=== PATIENT | male | born 1955 | race Caucasian/White ===

== ENCOUNTER 2022-05-08 10:42 | Emergency (ER) | payer MEDICARE, MEDICAID, SELFPAY ==
[2022-05-08] VITALS (9 sets, daily range): BP systolic 136–232; BP diastolic 62–128; PULSE 70–117; RESP 12–28; TEMP 36.1; O2SAT 95–98; BMI 31.0
[2022-05-08 11:06] LABS: Add Manual Diff / Slide Review NO; Basophils Absolute Auto 0 /uL (0-100); Basophils Percent Auto 1.1 % (0-2); Eosinophils Absolute Auto 100 /uL (0-450); Eosinophils Percent Auto 1.3 % (2-4); Hematocrit 43.6 % (41-53); Hemoglobin 15.2 g/dL (13.5-17.5); Lymphocytes Absolute Auto 1400 /uL (1100-4500); Lymphocytes Percent Auto 36.9 % (25-40); Mean Corpuscular HGB Conc 34.8 % (30-36); Mean Corpuscular Hemoglobin 33.7 PG (26-34); Monocytes Absolute Auto 200 /uL (0-900); Monocytes Percent Auto 5.4 % (3-14); Neutrophils Absolute Auto 2100 /uL (1500-7000); Neutrophils Percent Auto 55.3 % (50-75); Platelet Count 226 X10^3/uL (150-400); Red Cell Distribution Width 14.7 % (11.6-14.8); White Blood Cell Count 3.9 X10^3/uL (4.5-11.0)
[2022-05-08 11:17] LABS: Alanine Aminotransferase 106 IU/L (<50); Albumin 4.5 g/dL (3.5-5.0); Albumin Globulin Ratio 1.3 (1.0-2.8); Alkaline Phosphatase 72 U/L (38-126); Aspartate Aminotransferase 145 IU/L (17-59); BUN Creatinine Ratio 14.3 (6-22); Bilirubin Total 1.1 mg/dL (0.2-1.3); Blood Urea Nitrogen 9 mg/dL (9-20); Carbon Dioxide 22 mmol/L (22-32); Chloride 100 mmol/L (98-107); Estimated Glomerular Filt Rate > 60 mL/min (>60); Globulin 3.5 g/dL (1.7-4.1); Glucose 115 mg/dL (80-110); HEMOLYSIS < 15 (0-50); Lipase 95 U/L (23-300); Potassium 3.2 mmol/L (3.4-5.1); Sodium 135 mmol/L (137-145)
--- NOTE | 2022-05-08 14:01 | DI.CT.S_ITS ---
PROCEDURE: CT ABDOMEN PELVIS W CON INDICATIONS: left abd pain,hx diverticulitis TECHNIQUE: After the administration of intravenous contrast, axial sections acquired from the lung bases to the pubic symphysis. Coronal and sagittal reformats were performed. For radiation dose reduction, the following was used: automated exposure control, adjustment of mA and/or kV according to patient size. COMPARISON: [facility], CT, ABDOMEN/PELVIS WITH CONTRAST, 05/14/2017, 13:46. FINDINGS: Image quality: Excellent. Lung bases: Unremarkable. Heart: No significant findings. ABDOMEN: Liver: Unremarkable except for what appears to be moderate fatty infiltration throughout the liver parenchyma. Gallbladder: Unremarkable. Biliary ducts: Unremarkable. Pancreas: Unremarkable. Spleen: Unremarkable. Adrenal Glands: Unremarkable. Kidneys and Ureters: Unremarkable. Stomach and Bowel: Stomach, small bowel loops, and colon are unremarkable. Peritoneum: No abnormal intraperitoneal fluid. No free air. Ventral Wall: No hernias. Abdominal Nodes: No retroperitoneal or mesenteric adenopathy by size criteria. 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 This vessel was patent on prior CT scanning 05/14/17. There is apparent perfusion to the left external iliac artery through branches of collaterals via the left internal iliac artery. PELVIS: Pelvic Organs: Unremarkable. Bladder: Unremarkable. Pelvic Nodes: No enlarged lymph nodes. Miscellaneous: No hernias are seen. Diverticulosis is prominent through the sigmoid colon but no definite acute diverticulitis. No ischemic injury to the bowel within the pelvis is found associated with the left common iliac artery current occlusion discussed above. Bones: Unremarkable. 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 Prominent diverticulosis again noted at the sigmoid colon but without acute diverticulitis identified. No urinary tract stone or inflammation is seen. Dictated by: Haseeb Bermduez M.D. on 05/08/2022 at 14:32 Approved by: Haseeb Bermudez M.D. on 05/08/2022 at 14:38
--- NOTE | 2022-05-08 15:16 | ED_ITS ---
HPI - Abdominal Pain <LYNDA Erwin - Last Filed: 05/08/22 15:44> General Chief Complaint: Abdominal Pain Stated Complaint: diverticulitus T-7 Time Seen by Provider: 05/08/22 14:57 Source: patient Mode of arrival: Ambulatory History of Present Illness HPI narrative: 67-year-old male, with history of frequent diverticulitis, presents to the emergency department with complaints of lower abdominal pain x2 weeks. Patient reports that his symptoms were consistent with previous episodes of diverticulitis, to include ribbon like bowel movements. Patient states that the pain started to improve several days ago, which is unlike previous episodes. Patient has noticed hard stools over the last week and has been manually disimpacting himself. Patient did eat a brand muffin and had a larger, more normal bowel movement. Patient endorses his pain as 4/10. Related Data Home Medications Medication Instructions Recorded Confirmed aspirin 325 mg tablet 325 mg PO PRN PRN ##0 01/18/17 12/25/19 acetaminophen 325 mg tablet 325 mg PO PRN PRN ##0 05/14/17 12/25/19 melatonin 3 mg tablet PO HSP PRN ##0 05/14/17 12/25/19 Previous Rx's Medication Instructions Recorded triamcinolone acetonide 0.1 % 1 applic topical TID #80 grams 01/01/20 topical cream amoxicillin 500 mg capsule 500 mg PO TID #30 caps 03/26/22 amoxicillin 875 mg-potassium 1 tab PO BID 10 days #20 tabs 05/08/22 clavulanate 125 mg tablet Allergies Allergy/AdvReac Type Severity Reaction Status Date / Time No Known Drug Allergies Allergy Verified 05/08/22 10:48 Review of Systems <LYNDA Erwin - Last Filed: 05/08/22 15:44> Review of Systems Narrative: Narrative: See HPI. GENERAL: Denies chills, fatigue, fever, sweats. HEENT: Denies sinus pain, ear pain, sore throat, difficulty swallowing, dizziness. Endorses left lower dental pain. RESPIRATORY: Denies dyspnea, cough, wheezing, sputum. CARDIOVASCULAR: Denies chest pain, palpitations, edema. GASTROINTESTINAL: Denies nausea, vomiting, diarrhea, constipation. Endorses lower abdominal pain. : Denies dysuria, frequency, incontinence, hematuria, urinary retention, flank pain. MSK: Denies weakness, joint pain, or bony pain. SKIN: Denies rash, skin lesions, or pruritis. NEUROLOGIC: Denies weakness, dizziness, headache, numbness, confusion. PSYCHIATRIC: No concerning psychosocial issues. Patient History <LYNDA Erwin - Last Filed: 05/08/22 15:44> Medical History Oral thrush Skin rash Social History Smoking Status: Current some day smoker Smoking Status: Current some day smoker alcohol intake frequency: holidays/special occasions only Substance Use Type: does not use Exam <LYNDA Erwin - Last Filed: 05/08/22 15:44> Narrative Exam Narrative: Exam Narrative: GENERAL: This is a well-nourished, well-developed patient, in no acute distress. HEAD: Atraumatic. Normocephalic. EYES: Pupils equal round and reactive. Extraocular motions intact. No scleral icterus, injection or drainage. ENT: Nose without bleeding, purulent drainage. Throat without erythema, tonsillar hypertrophy or exudate. Poor dentition. Evidence of dental abscess adjacent to tooth number #23. Uvula midline. Airway patent. Left TM and canal clear, right canal impacted with cerumen.. No sinus tenderness. NECK: Trachea midline. No JVD or lymphadenopathy. Nontender. CARDIOVASCULAR: Regular rate and rhythm without murmurs, peripheral pulses intact, cap refill <2 sec. Lower extremity pulses intact and strong. RESPIRATORY: Breath sounds equal and clear bilaterally. No wheezes, rales, or rhonchi. No cough. No increased respiratory effort. No accessory muscle use. GASTROINTESTINAL: Abdomen soft, mild left lower quadrant tenderness, non distended without guarding or rebound. No suprapubic pain. MSK: Moves all extremities. Normal range of motion, no clubbing or edema. Neurovascularly intact. NEURO: A&O x 3. SKIN: Warm, dry, no rashes or lesions noted. Initial Vital Signs Initial Vital Signs: Vital Signs Temperature 97.0 F L 05/08/22 10:48 Pulse Rate 117 H 05/08/22 10:48 Respiratory Rate 16 05/08/22 10:48 Blood Pressure 162/128 H 05/08/22 10:48 Pulse Oximetry 98 05/08/22 10:48 Oxygen Delivery Method Room Air 05/08/22 10:48 Reviewed <Rachel Ramírez DO - Last Filed: 05/09/22 08:42> Initial Vital Signs Initial Vital Signs: Vital Signs Temperature 97.0 F L 05/08/22 10:48 Pulse Rate 117 H 05/08/22 10:48 Respiratory Rate 16 05/08/22 10:48 Blood Pressure 162/128 H 05/08/22 10:48 Pulse Oximetry 98 05/08/22 10:48 Oxygen Delivery Method Room Air 05/08/22 10:48 Course <LYNDA Erwin - Last Filed: 05/08/22 15:44> Orders Ordered: ED Orders 05/08/22 10:51 EKG-12 Lead Stat 05/08/22 11:00 Complete Blood Count AUTO DIFF Stat Comprehensive Metabolic Panel Stat Lipase Stat 05/08/22 14:01 CT abdomen pelvis w con Stat Vital Signs Vital signs: Vital Signs - 8 hr 05/08/22 10:48 05/08/22 13:23 05/08/22 13:23 Temperature 97.0 F L Pulse Rate 117 H 92 H Respiratory Rate 16 Blood Pressure 162/128 H 194/98 H Pulse Oximetry 98 98 Oxygen Delivery Method Room Air 05/08/22 13:30 05/08/22 13:30 05/08/22 14:01 Temperature Pulse Rate 90 103 H Respiratory Rate 28 H 18 Blood Pressure 187/88 H Pulse Oximetry 98 97 Oxygen Delivery Method 05/08/22 14:03 05/08/22 14:03 05/08/22 14:10 Temperature Pulse Rate 81 83 Respiratory Rate 12 14 Blood Pressure 232/95 H Pulse Oximetry 98 97 Oxygen Delivery Method 05/08/22 14:10 Temperature Pulse Rate Respiratory Rate Blood Pressure 149/97 H Pulse Oximetry Oxygen Delivery Method <Rachel Ramírez DO - Last Filed: 05/09/22 08:42> Orders Ordered: ED Orders 05/08/22 10:51 EKG-12 Lead Stat 05/08/22 11:00 Complete Blood Count AUTO DIFF Stat Comprehensive Metabolic Panel Stat Lipase Stat 05/08/22 14:01 CT abdomen pelvis w con Stat Vital Signs Vital signs: Vital Signs - 8 hr 05/08/22 10:48 05/08/22 13:23 05/08/22 13:23 Temperature 97.0 F L Pulse Rate 117 H 92 H Respiratory Rate 16 Blood Pressure 162/128 H 194/98 H Pulse Oximetry 98 98 Oxygen Delivery Method Room Air 05/08/22 13:30 05/08/22 13:30 05/08/22 14:01 Temperature Pulse Rate 90 103 H Respiratory Rate 28 H 18 Blood Pressure 187/88 H Pulse Oximetry 98 97 Oxygen Delivery Method 05/08/22 14:03 05/08/22 14:03 05/08/22 14:10 Temperature Pulse Rate 81 83 Respiratory Rate 12 14 Blood Pressure 232/95 H Pulse Oximetry 98 97 Oxygen Delivery Method 05/08/22 14:10 Temperature Pulse Rate Respiratory Rate Blood Pressure 149/97 H Pulse Oximetry Oxygen Delivery Method MDM - Abdominal Pain <LYNDA Erwin - Last Filed: 05/08/22 15:44> Differential Diagnosis Differential diagnosis: Likely abdominal pain, constipation, diverticulitis and small bowel obstruction; Unlikely acute appendicitis Lab Data 05/08/22 11:00 05/08/22 11:00 Labs: Lab Results 05/08/22 05/08/22 Range/Units 11:00 11:00 WBC 3.9 L (4.5-11.0) X10^3/uL RBC 4.50 (4.5-5.9) X10^6/uL Hgb 15.2 (13.5-17.5) g/dL Hct 43.6 (41-53) % MCV 97.0 (80-100) fL MCH 33.7 (26-34) PG MCHC 34.8 (30-36) % RDW 14.7 (11.6-14.8) % Plt Count 226 (150-400) X10^3/uL Neut % (Auto) 55.3 (50-75) % Lymph % (Auto) 36.9 (25-40) % Noble % (Auto) 5.4 (3-14) % Eos % (Auto) 1.3 L (2-4) % Baso % (Auto) 1.1 (0-2) % Neut # (Auto) 2100 (1057-1316) /uL Lymph # (Auto) 1400 (5777-0497) /uL Noble # (Auto) 200 (0-900) /uL Eos # (Auto) 100 (0-450) /uL Baso # (Auto) 0 (0-100) /uL Sodium 135 L (137-145) mmol/L Potassium 3.2 L (3.4-5.1) mmol/L Chloride 100 (98-107) mmol/L Carbon Dioxide 22 (22-32) mmol/L BUN 9 (9-20) mg/dL Creatinine 0.63 L (0.66-1.25) mg/dL Estimated GFR > 60 (>60) mL/min BUN/Creatinine Ratio 14.3 (6-22) Glucose 115 H (80-110) mg/dL Calcium 9.0 (8.4-10.2) mg/dL Total Bilirubin 1.1 (0.2-1.3) mg/dL AST 145 H (17-59) IU/L ALT 106 H (<50) IU/L Alkaline Phosphatase 72 (38-126) U/L Total Protein 8.0 (6.3-8.2) g/dL Albumin 4.5 (3.5-5.0) g/dL Globulin 3.5 (1.7-4.1) g/dL Albumin/Globulin Ratio 1.3 (1.0-2.8) Lipase 95 (23-300) U/L Imaging Data CT scan - abdomen/pelvis: Radiologist's Impression: [address] [address] [address] Scan Report Signed Patient: Luis Enrique Olea MR#: [id number] : 1955 Acct:[id number] Age/Sex: 67 / M Date of Service: 05/08/22 Loc: ED Accession Number: [id number] ?? Procedure: CT abdomen pelvis w con Ordering Provider: Rachel Ramírez D.O. PROCEDURE:? CT ABDOMEN PELVIS W CON ? INDICATIONS:? left abd pain,hx diverticulitis ? TECHNIQUE:? After the administration of intravenous contrast, axial sections acquired from the lung bases to the pubic symphysis.? Coronal and sagittal reformats were performed.? For radiation dose reduction, the following was used:? automated exposure control, adjustment of mA and/or kV according to patient size.? ? COMPARISON:? [facility], CT, ABDOMEN/PELVIS WITH CONTRAST, 05/14/2017, 13:46. ? FINDINGS:? Image quality:? Excellent.? ? Lung bases:? Unremarkable. Heart:? No significant findings. ? ABDOMEN: Liver:? Unremarkable except for what appears to be moderate fatty infiltration throughout the liver parenchyma.? ? Gallbladder:? Unremarkable.? ? Biliary ducts:? Unremarkable.? ? Pancreas:? Unremarkable.? ? Spleen:? Unremarkable.? ? Adrenal Glands:? Unremarkable.? ? Kidneys and Ureters:? Unremarkable.? ? ? Stomach and Bowel:? Stomach, small bowel loops, and colon are unremarkable.? Peritoneum:? No abnormal intraperitoneal fluid.? No free air.? ? Ventral Wall: ? No hernias.? Abdominal Nodes:? No retroperitoneal or mesenteric adenopathy by size criteria.? Vessels:? 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 This vessel was patent on prior CT scanning 05/14/17.? There is apparent perfusion to the left external il iac artery through branches of collaterals via the left internal iliac artery.? ? PELVIS: Pelvic Organs:? Unremarkable.? ? Bladder:? Unremarkable.? ? Pelvic Nodes: No enlarged lymph nodes.? Miscellaneous: No hernias are seen.? Diverticulosis is prominent through the sigmoid colon but no definite acute diverticulitis.? No ischemic injury to the bowel within the pelvis is found associated with the left common iliac artery current occlusion discussed above. ? ? Bones:? Unremarkable.? IMPRESSION:? 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 ? Prominent diverticulosis again noted at the sigmoid colon but without acute diverticulitis identified.? No urinary tract stone or inflammation is seen. ? ? Dictated by: Haseeb Bermudez M.D. on 05/08/2022 at 14:32 ? ? Approved by: Haseeb Bermudez M.D. on 05/08/2022 at 14:38 ? MDM Narrative Medical decision making narrative: 67-year-old male presented to the emergency department with lower abdominal pain that has been consistent with previous bouts of diverticulitis. Reassessment reveals improving abdominal pain. Assessment was encouraging and labs are not overly concerning. Elevated AST and ALT. CT scan revealed occlusion of the left external iliac artery, but does have perfusion through collateral vessels. Patient also endorsing left lower dental pain and would like to be placed back on antibiotics until he can see his dentist. Will treat patient with Augmentin for the dental abscess. Recommended patient start increasing his hydration and taking in more fiber to improve his bowel movements. Patient will follow up with his family doctor as needed. Strict instructions for any worsening s ymptoms that include inability to void, intolerable pain, chest pain or shortness of breath, to return to the emergency department. Patient verbalized understanding and was agreeable with course of action. <Rachel Ramírez, DO - Last Filed: 05/09/22 08:42> Lab Data Labs: Lab Results 05/08/22 05/08/22 Range/Units 11:00 11:00 WBC 3.9 L (4.5-11.0) X10^3/uL RBC 4.50 (4.5-5.9) X10^6/uL Hgb 15.2 (13.5-17.5) g/dL Hct 43.6 (41-53) % MCV 97.0 (80-100) fL MCH 33.7 (26-34) PG MCHC 34.8 (30-36) % RDW 14.7 (11.6-14.8) % Plt Count 226 (150-400) X10^3/uL Neut % (Auto) 55.3 (50-75) % Lymph % (Auto) 36.9 (25-40) % Noble % (Auto) 5.4 (3-14) % Eos % (Auto) 1.3 L (2-4) % Baso % (Auto) 1.1 (0-2) % Neut # (Auto) 2100 (0678-8891) /uL Lymph # (Auto) 1400 (5961-7726) /uL Noble # (Auto) 200 (0-900) /uL Eos # (Auto) 100 (0-450) /uL Baso # (Auto) 0 (0-100) /uL Sodium 135 L (137-145) mmol/L Potassium 3.2 L (3.4-5.1) mmol/L Chloride 100 (98-107) mmol/L Carbon Dioxide 22 (22-32) mmol/L BUN 9 (9-20) mg/dL Creatinine 0.63 L (0.66-1.25) mg/dL Estimated GFR > 60 (>60) mL/min BUN/Creatinine Ratio 14.3 (6-22) Glucose 115 H (80-110) mg/dL Calcium 9.0 (8.4-10.2) mg/dL Total Bilirubin 1.1 (0.2-1.3) mg/dL AST 145 H (17-59) IU/L ALT 106 H (<50) IU/L Alkaline Phosphatase 72 (38-126) U/L Total Protein 8.0 (6.3-8.2) g/dL Albumin 4.5 (3.5-5.0) g/dL Globulin 3.5 (1.7-4.1) g/dL Albumin/Globulin Ratio 1.3 (1.0-2.8) Lipase 95 (23-300) U/L Discharge Plan Departure Patient Disposition: Home Clinical Impression: Dental abscess, Abdominal pain Instructions: DI for Abdominal Pain-Adult, DI for Dental Pain Activity Restrictions/Additional Instructions: *You have been diagnosed with improving abdominal pain and dental abscess. We will treat the dental abscess with Augmentin for 10 days. Please follow-up with your dentist as soon as possible. Your CT revealed no diverticulitis but did reveal a occlusion of the left external iliac artery. Your labs were not co ncerning but did note a elevation of your AST/ALT that are related to your liver function. For normalizing your bowel movements, please make sure you are drinking plenty of water and taking in adequate so amount of fiber. Please follow-up with your family doctor. *What to do: *Please continue to take your regular medications as directed. [ ] New medication prescriptions sent to your pharmacy: [ ] [ ] New medication written as a paper prescription [ ] No new medications given *Please follow up with your primary care provider in 2-3 days, call for an appointment. Let them know you were seen in the Emergency Department and that we ask that you be seen in follow up. We will electronically transmit a record of today's note if your PCP is in our system *If you do not have a primary care provider please contact the [facility] Resource line at [phone]. They will ask some questions about your medical history and help get you set up with a doctor in the community. ? Return to ER if you should have any new, worsening or concerning symptoms, such as worsening pain, severe headache, confusion, chest pain, difficulty breathing, fever greater than 101 F, shaking chills, persistent vomiting to the point that you cannot drink fluids, or other new or worsening symptoms. Prescriptions: New amoxicillin-pot clavulanate 875-125 mg tablet 1 tab PO BID 10 Days Qty: 20 0RF No Action triamcinolone acetonide 0.1 % cream 1 applic TOP TID Qty: 80 0RF aspirin 325 MG tablet 325 mg PO PRN PRNQty: 0 acetaminophen 325 MG tablet 325 mg PO PRN PRNQty: 0 melatonin 3 mg tablet PO HSP PRNQty: 0 amoxicillin 500 mg capsule 500 mg PO TID Qty: 30 0RF Referrals: Miscellaneous,Doctor, MD [Primary Care Provider] - Stand Alone Forms: Patient Portal/API <Rachel Ramírez DO - Last Filed: 05/09/22 08:42> Cosign ED Attending Cosignature Attestation: I was immediately available in the department for consultation. Documentation has been reviewed.
== END 2022-05-08 15:50 | disposition home or self-care (01) ==
PROVIDERS: Emergency Medicine; Emergency Provider Registered Nurse
DX: K04.7 Periapical abscess without sinus (principal); R10.30 Lower abdominal pain, unspecified
CPT/HCPCS: 36415; 74177; 80053; 83690; 85025; 99284; Q9967

== ENCOUNTER 2022-05-11 11:15 | Emergency (ER) | payer MEDICARE, MEDICAID, SELFPAY ==
[2022-05-11 11:24] VITALS: BP 163/79; PULSE 91; RESP 16; TEMP 37.1; O2SAT 98
--- NOTE | 2022-05-11 11:26 | ED.ABDPAIN ---
HPI - Abdominal Pain General Stated Complaint: here T-7 HX of diverticulitis getting worse Related Data Home Medications Medication Instructions Recorded Confirmed aspirin 325 mg tablet 325 mg PO PRN PRN ##0 01/18/17 12/25/19 acetaminophen 325 mg tablet 325 mg PO PRN PRN ##0 05/14/17 12/25/19 melatonin 3 mg tablet PO HSP PRN ##0 05/14/17 12/25/19 Previous Rx's Medication Instructions Recorded triamcinolone acetonide 0.1 % 1 applic topical TID #80 grams 01/01/20 topical cream amoxicillin 500 mg capsule 500 mg PO TID #30 caps 03/26/22 amoxicillin 875 mg-potassium 1 tab PO BID 10 days #20 tabs 05/08/22 clavulanate 125 mg tablet Allergies Allergy/AdvReac Type Severity Reaction Status Date / Time No Known Drug Allergies Allergy Verified 05/08/22 10:48 Patient History Medical History Oral thrush Skin rash Social History Smoking Status: Current some day smoker Smoking Status: Current some day smoker alcohol intake frequency: holidays/special occasions only Substance Use Type: does not use Discharge Plan Departure Prescriptions: No Action triamcinolone acetonide 0.1 % cream 1 applic TOP TID Qty: 80 0RF aspirin 325 MG tablet 325 mg PO PRN PRNQty: 0 acetaminophen 325 MG tablet 325 mg PO PRN PRNQty: 0 melatonin 3 mg tablet PO HSP PRNQty: 0 amoxicillin 500 mg capsule 500 mg PO TID Qty: 30 0RF amoxicillin-pot clavulanate 875-125 mg tablet 1 tab PO BID 10 Days Qty: 20 0RF Referrals: Miscellaneous,Doctor, MD [Primary Care Provider] -
--- NOTE | 2022-05-11 11:38 | DI.RAD.S_ITS ---
PROCEDURE: XR ACUTE ABDOMEN SERIES INDICATIONS: abd pain TECHNIQUE: One view chest and two views of the abdomen were acquired. COMPARISON: [facility], CT, CT ABDOMEN PELVIS W CON, 05/08/2022, 13:54. FINDINGS: Surgical changes and devices: None. Chest: Lungs are clear. Heart size is normal. No pleural effusions. No pneumoperitoneum. Abdomen: Bowel gas pattern is normal. No suspicious calcifications. Visualized solid organ contours appear normal. Bones: No suspicious bony lesions. IMPRESSION: Unremarkable exam. Dictated by: Cinda Beaver M.D. on 05/11/2022 at 12:36 Approved by: Cinda Beaver M.D. on 05/11/2022 at 12:36
[2022-05-11 15:30] VITALS: BP 121/79; PULSE 96; RESP 18; O2SAT 99
--- NOTE | 2022-05-11 15:36 | ED.ABDPAIN ---
HPI - Abdominal Pain General Chief Complaint: Abdominal Pain Stated Complaint: here T-7 HX of diverticulitis getting worse Time Seen by Provider: 05/11/22 15:34 Source: patient Mode of arrival: Ambulatory Limitations: no limitations History of Present Illness HPI narrative: This is a 67-year-old male with history of recurrent diverticulitis, chronic back pain and complaint of lower abdominal pain radiating from the right over to the left. 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 Patient states he has had slightly elevated temperatures he thinks up to 100, he is had nausea but no vomiting. He denies chest pain or shortness of breath. He states he has been constipated he has stooled today smaller hard stools but regularly. No black or bloody stools. No dysuria urgency or frequency. He has no incontinence. He has chronic back pain with radiation down his right but no pain down his left leg. Patient states pain is across the entire lower abdomen. Notes he had a CT on 05/08/2022 was negative he states he is had multiple negative CTs in the past and sometimes his diverticulitis has been seen on x-ray. He states he knows this is weird and that his physician knew that it was weird but that was what he has seen. He did start Augmentin on is a 3rd twice daily with a 10 day prescription for a dental abscess. Patient denies any drug allergies. He does live on [facility] in his primary caregiver for his . Dr. Taylor was his primary care physician he has been through several physician since then does not recall who is his current provider as it keeps changing secondary to insurance. Related Data Home Medications Medication Instructions Recorded Confirmed aspirin 325 mg tablet 325 mg PO PRN PRN ##0 01/18/17 12/25/19 acetaminophen 325 mg tablet 325 mg PO PRN PRN ##0 05/14/17 12/25/19 melatonin 3 mg tablet PO HSP PRN ##0 05/14/17 12/25/19 Previous Rx's Medication Instructions Recorded triamcinolone acetonide 0.1 % 1 applic topical TID #80 grams 01/01/20 topical cream amoxicillin 500 mg capsule 500 mg PO TID #30 caps 03/26/22 amoxicillin 875 mg-potassium 1 tab PO BID 10 days #20 tabs 05/08/22 clavulanate 125 mg tablet hydrocodone 5 mg-acetaminophen 325 1 tab PO Q6H PRN pain #10 tabs 05/11/22 mg tablet Allergies Allergy/AdvReac Type Severity Reaction Status Date / Time No Known Drug Allergies Allergy Verified 05/11/22 11:29 Review of Systems Review of Systems ROS Unobtainable: All systems reviewed & are unremarkable except as noted in HPI and below Patient History Medical History Oral thrush Skin rash Social History Smoking Status: Current some day smoker Smoking Status: Current some day smoker alcohol intake frequency: holidays/special occasions only Substance Use Type: does not use Exam Narrative Exam Narrative: GENERAL: Alert and oriented x three, elderly male in mild distress. HEENT: Head normocephalic, atraumatic, EOMI, pupils reactive, face symmetric, moist mucous membranes NECK: Supple, full range of motion CARDIOVASCULAR: Regular rate and rhythm without murmurs, rubs or gallops. RESPIRATORY: Breath sounds equal bilaterally, no wheezes rales or rhonchi. ABDOMEN: Soft, nontender. Normoactive bowel sounds all 4 quadrants. No guarding or rebound, rigidity, no mass, nondistended. : No CVA tenderness EXTREMITIES: Normal range of motion, no clubbing or edema. Neurovascularly intact NEUROLOGICAL: Cranial nerves II through XII grossly intact. Moving all extremities SKIN: Warm, dry, no petechiae, no rashes or lesions. Initial Vital Signs Initial Vital Signs: Vital Signs Temperature 98.8 F 05/11/22 11:24 Pulse Rate 91 H 05/11/22 11:24 Respiratory Rate 16 05/11/22 11:24 Blood Pressure 163/79 H 05/11/22 11:24 Pulse Oximetry 98 05/11/22 11:24 Oxygen Delivery Method Room Air 05/11/22 11:24 Course Orders Ordered: ED Orders 05/11/22 11:38 XR acute abdomen series Stat Vital Signs Vital signs: Vital Signs - 8 hr 05/11/22 11:24 05/11/22 15:30 Temperature 98.8 F Pulse Rate 91 H 96 H Respiratory Rate 16 18 Blood Pressure 163/79 H 121/79 Pulse Oximetry 98 99 Oxygen Delivery Method Room Air Room Air MDM - Abdominal Pain Imaging Data Abdominal x-ray: Radiologist's Impression: Close Chest/Abdomen X-ray (Signed) Cinda Beaver - 05/11/22 Abdomen/Pelvis CT (Signed) Haseeb Bermudez - 05/08/22 Launch?Image [address] [address] XRay Report Signed Patient: Luis Enrique Olea MR#: [id number] : 1955 Acct:[id number] Age/Sex: 67 / M Date of Service: 05/11/22 Loc: ED Accession Number: [id number] ?? Procedure: XR acute abdomen series Ordering Provider: Annalee Medrano D.O. PROCEDURE:? XR ACUTE ABDOMEN SERIES ? INDICATIONS:? abd pain ? TECHNIQUE:? One view chest and two views of the abdomen were acquired.? ? COMPARISON:? [facility], CT, CT ABDOMEN PELVIS W CON, 05/08/2022, 13:54. ? FINDINGS:? ? Surgical changes and devices:? None.? ? Chest:? Lungs are clear.? Heart size is normal.? No pleural effusions.? No pneumoperitoneum.? ? Abdomen:? Bowel gas pattern is normal.? No suspicious calcifications.? Visualized solid organ contours appear normal.? ? Bones:? No suspicious bony lesions.? ? IMPRESSION:? Unremarkable exam. ? ? Dictated by: Cinda Beaver M.D. on 05/11/2022 at 12:36 ? ? Approved by: Cinda Beaver M.D. on 05/11/2022 at 12:36?? MDM Narrative Medical decision making narrative: This is a 67-year-old male who presents with complaint of lower abdominal pain he states this is very similar his usual diverticulitis, he states from the right and radiates towards the left. It does not go down his leg. He does have chronic back pain which radiates down his right leg. 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 Patient and I discussed he would asked for his x-ray of his abdomen as he is states they have seen diverticulitis on this before. This is unremarkable. Discussed with patient about obtaining labs and repeat CT abdomen pelvis, he would like to defer and continue the Augmentin he started on Wednesday as he states he is had some improvement of his discomfort. He was not sure if it would be appropriate coverage. We will do a short course of pain medication as he lives on [facility] and he would be unable to easily return overnight. I did offer repeatedly to repeat labs and CT secondary to his age and persisting although slowly improving symptoms. We also reviewed his findings from his CT abdomen pelvis on the he was unaware of the occlusion of the left vessel, states he is not currently on any anticoagulation and was recommended to continue aspirin daily and follow-up with his physician. We discussed return precautions all questions answered. Discharge Plan Departure Patient Disposition: Home Clinical Impression: Abdominal pain Activity Restrictions/Additional Instructions: Follow-up with your physician for recheck. There is occlusion of the left common iliac artery, there does appear to be collateral flow but I would recommend that you take an aspirin daily. Complete your antibiotics (Your Augmentin prescribed on the 08 of May) You can take ibuprofen up to 600 mg every 6 hours. If in adequate you can take [place] 1-2 tablets every 6 hours as needed. This medication can make you sleepy do not drive, perform hazardous activities or make any major decisions while taking it. This medication will make you constipated please take a stool softener once to twice daily until stools are soft and regular. Take stool softener such as Colace 1-2 times daily make sure you are drinking plenty of fluids while you are having constipation. Prescription sent to [facility] in [place] Please return for fevers, new or worsening abdominal back or flank pain, pain radiating down your left leg, color changes such as blue, white or decreased color in her leg, persistent vomiting, black or bloody stools or other new or concerning changes Prescriptions: New hydrocodone-acetaminophen 5-325 mg tablet 1 tab PO Q6H PRN (Reason: pain) Qty: 10 0RF No Action triamcinolone acetonide 0.1 % cream 1 applic TOP TID Qty: 80 0RF aspirin 325 MG tablet 325 mg PO PRN PRNQty: 0 acetaminophen 325 MG tablet 325 mg PO PRN PRNQty: 0 melatonin 3 mg tablet PO HSP PRNQty: 0 amoxicillin 500 mg capsule 500 mg PO TID Qty: 30 0RF amoxicillin-pot clavulanate 875-125 mg tablet 1 tab PO BID 10 Days Qty: 20 0RF Referrals: Miscellaneous,Doctor, MD [Primary Care Provider] - Stand Alone Forms: Patient Portal/API
== END 2022-05-11 16:29 | disposition home or self-care (01) ==
PROVIDERS: Emergency Provider Emergency Medicine
DX: R10.30 Lower abdominal pain, unspecified (principal)
CPT/HCPCS: 74022; 99283

== ENCOUNTER 2023-11-19 09:12 | Emergency (ER) | payer MEDICARE, MEDICAID, SELFPAY ==
[2023-11-19 09:22] VITALS: BP 150/74; PULSE 71; RESP 16; TEMP 36.2; O2SAT 99; BMI 27.9
--- NOTE | 2023-11-19 11:33 | ED_ITS ---
HPI - General Adult <Cherelle Luna PA-C - Last Filed: 11/19/23 14:20> General Chief complaint: Eye Problems Stated complaint: athletes foot in eyes? Time Seen by Provider: 11/19/23 11:15 History of Present Illness HPI narrative: Patient is a very pleasant 68-year-old male presents to the emergency room department stay with multiple complaints. 1. Left ear pain, pressure, drainage. 2. Black discharge from the eyes, patient states that the discharge is exactly the same from when he had a fungal infection, athlete's foot in his eyes, he states that he had this 2 years ago and these were the symptoms that he had. 3. Dry nose, pressure behind the eyes, with a history of chronic sinus infections. These symptoms have been ongoing for the last several days. Denies recent upper respiratory symptoms. Denies any other symptoms. No recent fevers. Does not wear glasses on a daily basis. No visual changes. Related Data Home Medications Medication Instructions Recorded Confirmed aspirin 325 mg tablet 325 mg PO PRN PRN ##0 01/18/17 07/28/22 melatonin 3 mg tablet PO HSP PRN ##0 05/14/17 07/28/22 Previous Rx's Medication Instructions Recorded triamcinolone acetonide 0.1 % 1 applic topical TID #80 grams 01/01/20 topical cream atorvastatin 20 mg tablet (Lipitor) 20 mg PO DAILY cholesterol #90 tabs 07/28/22 amoxicillin 875 mg-potassium 1 tab PO BID #10 tabs 11/19/23 clavulanate 125 mg tablet Allergies Allergy/AdvReac Type Severity Reaction Status Date / Time No Known Drug Allergies Allergy Verified 07/28/22 12:55 Review of Systems <Cherelle Luna PA-C - Last Filed: 11/19/23 14:20> Review of Systems Narrative: Negative except as above Eyes Comments: Black drainage crusting in the morning. No changes in his visual acuity. ENT Comments: Left ear pain, drainage. Pressure behind his eyes. Dry nose. Patient History <Cherelle Luna PA-C - Last Filed: 11/19/23 14:20> Medical History Numbness of toes Arthritis of both hands Plantar warts Acne Sleep apnea Allergies Anxiety Migraines Headache Herniated disc Shoulder pain Fractures Foot pain Chronic back pain Carpal tunnel syndrome Ankle pain Mumps Measles Chicken pox Anemia Tinnitus Retinal detachment Recurrent sinusitis History of recurrent ear infection Hearing loss Hemorrhoid Gastric ulcer Crohn's disease Insomnia Chronic hip pain Alcohol use Elevated LFTs PTSD (post-traumatic stress disorder) Iliac artery occlusion Tobacco dependence Skin rash Oral thrush Diverticulitis Surgical History Anesthesia History of sinus surgery Social History Smoking Status: Current some day smoker Smoking Status: Current some day smoker alcohol intake frequency: holidays/special occasions only Substance Use Type: does not use Exam <Cherelle Luna PA-C - Last Filed: 11/19/23 14:20> Initial Vital Signs Initial Vital Signs: Vital Signs Temperature 97.1 F L 11/19/23 09:22 Pulse Rate 71 11/19/23 09:22 Respiratory Rate 16 11/19/23 09:22 Blood Pressure 150/74 H 11/19/23 09:22 Pulse Oximetry 99 11/19/23 09:22 Oxygen Delivery Method Room Air 11/19/23 09:22 Reviewed Const Other: Pleasant older appearing male than stated age. Slightly disheveled. He is alert he is oriented he is pleasant, interactive. HENSD Head: normal to inspection and normocephalic Ears: hearing grossly normal bilaterally, external ears normal, TM normal on the right and unable to visualize TM (The left ear ear lavage, will be evaluated after the ear lavage.) on the left Mouth: other (Multiple lower infected teeth.) Eyes Other: Weight proportionate, appropriate, interactive, pupils are PERRLA, EOMs are intact. Currently does not have any drainage. No signs of erythema to the eyes, currently no drainage, no styes, eyelids are normal. Conjunctiva is normal. Sclera is normal. Fluorescein eye exam no signs and symptoms of uptake, no hyphae is noted on exam. Neuro Other: Cranial nerves are grossly intact. Cognition, speech, gait, motor all within normal limits. <Rahcel Ramírez DO - Last Filed: 11/20/23 08:10> Initial Vital Signs Initial Vital Signs: Vital Signs Temperature 97.1 F L 11/19/23 09:22 Pulse Rate 71 11/19/23 09:22 Respiratory Rate 16 11/19/23 09:22 Blood Pressure 150/74 H 11/19/23 09:22 Pulse Oximetry 99 11/19/23 09:22 Oxygen Delivery Method Room Air 11/19/23 09:22 Procedures <Cherelle Luna PA-C - Last Filed: 11/19/23 14:20> Ear Wax Removal Left Ear: Time of procedure: 12:37 Cerumenolytic Used: Cerumenex Results: Re-examined: cerumen removed completely Ear Canal Exam: other (Currently this time the patient does not have otitis media or otitis externa of the left ear.) Patient Tolerated Procedure: Well Course <Cherelle Luna PA-C - Last Filed: 11/19/23 14:20> Orders Ordered: Discontinued Medications Carbamide Peroxide (Carbamide Peroxide Otic 15 Ml) 4 drops EAR-LEFT NOW ONE Stop: 11/19/23 11:33 Last Admin: 11/19/23 12:26 Dose: 4 drops Documented By: NOEL Carbamide Peroxide (Carbamide Peroxide Otic 15 Ml) 4 drops EAR-LEFT NOW ONE Stop: 11/19/23 11:46 Fluorescein Sodium (Fluorescein 1 Mg Strip) 1 mg EYE-BOTH NOW ONE Stop: 11/19/23 12:23 Last Admin: 11/19/23 12:26 Dose: 1 mg Documented By: NOEL Fluorescein Sodium (Fluorescein 1 Mg Strip) 1 mg EYE-BOTH NOW ONE Stop: 11/19/23 12:23 Last Admin: 11/19/23 12:26 Dose: 1 mg Documented By: NOEL Proparacaine HCl (Proparacaine 0.5% Ophth Lexii) 1 drops EYE-BOTH NOW ONE Stop: 11/19/23 11:32 Proparacaine HCl (Proparacaine 0.5% Ophth Lexii) 1 drops EYE-BOTH NOW ONE Stop: 11/19/23 11:46 Last Admin: 11/19/23 12:08 Dose: 2 drop Documented By: NOEL Vital Signs Vital signs: Vital Signs - 8 hr 11/19/23 09:22 11/19/23 13:42 Temperature 97.1 F L Pulse Rate 71 62 Respiratory Rate 16 18 Blood Pressure 150/74 H 172/77 H Pulse Oximetry 99 98 Oxygen Delivery Method Room Air Room Air <Rachel Ramírez DO - Last Filed: 11/20/23 08:10> Orders Ordered: Discontinued Medications Carbamide Peroxide (Carbamide Peroxide Otic 15 Ml) 4 drops EAR-LEFT NOW ONE Stop: 11/19/23 11:33 Last Admin: 11/19/23 12:26 Dose: 4 drops Documented By: NOEL Carbamide Peroxide (Carbamide Peroxide Otic 15 Ml) 4 drops EAR-LEFT NOW ONE Stop: 11/19/23 11:46 Fluorescein Sodium (Fluorescein 1 Mg Strip) 1 mg EYE-BOTH NOW ONE Stop: 11/19/23 12:23 Last Admin: 11/19/23 12:26 Dose: 1 mg Documented By: NOEL Fluorescein Sodium (Fluorescein 1 Mg Strip) 1 mg EYE-BOTH NOW ONE Stop: 11/19/23 12:23 Last Admin: 11/19/23 12:26 Dose: 1 mg Documented By: NOEL Proparacaine HCl (Proparacaine 0.5% Ophth Lexii) 1 drops EYE-BOTH NOW ONE Stop: 11/19/23 11:32 Proparacaine HCl (Proparacaine 0.5% Ophth Lexii) 1 drops EYE-BOTH NOW ONE Stop: 11/19/23 11:46 Last Admin: 11/19/23 12:08 Dose: 2 drop Documented By: NOEL Vital Signs Vital signs: Vital Signs - 8 hr 11/19/23 09:22 11/19/23 13:42 Temperature 97.1 F L Pulse Rate 71 62 Respiratory Rate 16 18 Blood Pressure 150/74 H 172/77 H Pulse Oximetry 99 98 Oxygen Delivery Method Room Air Room Air Medical Decision Making <Cherelle Luna PA-C - Last Filed: 11/19/23 14:20> [facility] Narrative Medical decision making narrative: Patient is a very pleasant 68-year-old male presents to the emergency department with multiple complaints, bilateral ear pain left greater than right. Black discharge from his eyes in the morning crusting in the morning, nose dryness, pain behind his eyes, history of athlete's foot in his eye, history of chronic sinusitis, history of TMJ, history of ear infections. Eye exam with proparacaine and fluorescein negative for hyphae negative for any uptake Eye exam is negative for any acute findings Left tympanic membrane was obscured from wax Debrox was used to soften wax and the ear was lavaged, curette was used to clear the soft wax out. Reexamined Patient has pain and pressure over the frontal aspect of his face Most likely the patient has a exacerbation of his chronic sinus infections. Re-examination after the ears flushed and cleaned with a curette there is no signs of an ear infection in the left ear. Differential diagnosis; conjunctivitis, sinus infection, URI, TMJ, dental infection, stating tube dysfunction, otitis media, otitis externa, Discharge Plan Departure Patient Disposition: Home Clinical Impression: Acute sinus infection Qualifiers: Sinusitis location: frontal Recurrence: recurrent Qualified Code(s): J01.11 - Acute recurrent frontal sinusitis Instructions: DI for Sinusitis Activity Restrictions/Additional Instructions: Increase your hydration, sensory history increased wax in her ears you can do either Debrox, or vitamin E oil gel tablets, alcohol and drop a couple of drops in your ears, use a cotton ball in the ear and sleep with it overnight. The heat from your body in the time will help moisturize the wax and soften the wax and then it will come out in the shower. Consider an [id number]-srmwqud antihistamine, take the medications as prescribed. Prescriptions: New amoxicillin-pot clavulanate 875-125 mg tablet 1 tab PO BID Qty: 10 0RF No Action triamcinolone acetonide 0.1 % cream 1 applic TOP TID Qty: 80 0RF aspirin 325 MG tablet 325 mg PO PRN PRNQty: 0 melatonin 3 mg tablet PO HSP PRNQty: 0 atorvastatin [Lipitor] 20 mg tablet 20 mg PO DAILY Qty: 90 3RF Referrals: Christophe Juarez DO [Primary Care Provider] - Stand Alone Forms: Patient Portal/API ED Sign-out <Rachel Ramírez DO - Last Filed: 11/20/23 08:10> Cosign ED Attending Cosignature Attestation: I was available for consultation.
[2023-11-19] MEDS: PROPARACAINE 0.5% OPHTH SOL 1 DROPS EYE-BOTH (12:08)
[2023-11-19] MEDS: FLUORESCEIN 1 MG STRIP EYE-BOTH ×2 (12:26)
[2023-11-19] MEDS: CARBAMIDE PEROXIDE OTIC 15 ML 4 DROPS EAR-LEFT (12:26)
[2023-11-19 13:42] VITALS: BP 172/77; PULSE 62; RESP 18; O2SAT 98
== END 2023-11-19 13:43 | disposition home or self-care (01) ==
PROVIDERS: Emergency Provider Physician Assistant; PCP Family Medicine
DX: J01.11 Acute recurrent frontal sinusitis (principal); H61.22 Impacted cerumen, left ear
CPT/HCPCS: 69209; 99283; 99284